=== PATIENT | female | born 1990 | race American Indian/Alaskan Native ===

== ENCOUNTER 2020-09-20 20:18 | Emergency (ER) | payer MEDICAID ==
[2020-09-20 20:52] VITALS: BP 137/62
[2020-09-20] MEDS ORDERED: TETRACAINE 0.5% OPHTH SOLN 4ML OU PRN (23:44)
[2020-09-20] MEDS ORDERED: FLUORESCEIN 1 MG STRIP OP ONE (23:44)
[2020-09-21] MEDS ORDERED: IBUPROFEN 600 MG TAB PO ONE (00:15)
[2020-09-21] MEDS ORDERED: ACETAMINOPHEN W/CODEINE 300-30 MG TAB PO ONE (00:16)
[2020-09-21] MEDS ORDERED: ONDANSETRON 4 MG ODT TAB PO ONE (00:16)
--- NOTE | 2020-09-21 00:39 | Emergency Department Report ---
ED Eye Problem HPI - General Chief complaint: Eye Problems Stated complaint: RIGHT EYE PAIN/IRRITATION Source: patient Mode of arrival: Ambulatory Limitations: No Limitations - History of Present Illness Initial comments: Patient is a 29-year-old -[place] female with no past medical history who presents to the ED with complaint of acute onset persistent right eye pain a fter injury of the right eye with contact lens which she has seen removed 3 days ago. Patient states that the pain was initially mild but subsequently got worse. Patient states that in the last 12 hours she has had persistent blurry vision and photophobia in the right eye. Patient also states that the pain in the right eye is worse with blinking of the right eyelids with a foreign body sensation. Patient denies dizziness, syncope, fever, chills, vision loss, nausea and vomiting or headache. MD chief complaint: eye pain (Right eye pain), eye redness, eye injury (Right eye injury), vision change (Blurry vision on right eye), other (Foreign body sensation in the right eye) -: Sudden, days(s) (3) Onset Description: sudden Location: right eye Place: home If Injury: direct trauma (Contact lens injury) Eye Symptoms: redness, pain, foreign body sensation, blurry vision, photophobia Severity: severe Severity scale (0 -10): 7 If Pain, Quality: sharp, throbbing Consistency: constant Context: trauma (Contact lens injury), injury (Contact lens injury) Associated Symptoms: none Treatments Prior to Arrival: removed contact lens - Related Data Patient Tetanus UTD: Yes Previous Rx's Medication Instructions Recorded Last Taken Type Gentamicin 0.3% Ophth Soln 1 drops OP Q4H #5 ml 09/21/20 Unknown Rx Ibuprofen [Motrin] 600 mg PO Q8H PRN #30 tablet 09/21/20 Unknown Rx Allergies Allergy/AdvReac Type Severity Reaction Status Date / Time No Known Allergies Allergy Unverified 09/20/20 20:52 ED Review of Systems ROS: Stated complaint: RIGHT EYE PAIN/IRRITATION Other details as noted in HPI Constitutional: denies: chills, fever Eyes: eye pain (Right eye pain), vision change (Blurry vision in right eye). denies: eye discharge ENT: denies: ear pain, throat pain Respiratory: denies: cough, shortness of breath, wheezing Cardiovascular: denies: chest pain, palpitations Endocrine: no symptoms reported Gastrointestinal: denies: abdominal pain, nausea, diarrhea Genitourinary: denies: urgency, dysuria, discharge Musculoskeletal: denies: back pain, joint swelling, arthralgia Skin: denies: rash, lesions Neurological: denies: headache, weakness, paresthesias Psychiatric: denies: anxiety, depression Hematological/Lymphatic: denies: easy bleeding, easy bruising ED Past Medical Hx - Past Medical History Previous Medical History?: No - Surgical History Past Surgical History?: No - Social History Smoking Status: Never Smoker Substance Use Type: None - Medications Home Medications: Home Medications Medication Instructions Recorded Confirmed Last Taken Type Gentamicin 0.3% Ophth Soln 1 drops OP Q4H #5 ml 09/21/20 Unknown Rx Ibuprofen [Motrin] 600 mg PO Q8H PRN #30 tablet 09/21/20 Unknown Rx ED Physical Exam - General Limitations: No Limitations General appearance: alert, in no apparent distress - Head Head exam: Present: atraumatic, normocephalic, normal inspection - Eye Eye exam: Present: normal appearance, PERRL, EOMI, other (Erythematous right conjunctiva and cornea with fluorescein dye absorption on the anterior right cornea with Ledesma lamp exam) Pupils: Present: normal accommodation, other (Anterior right cornea abrasion identified with fluorescein dye through Ledesma lamp exam) - ENT ENT exam: Present: normal exam, normal orophraynx, mucous membranes moist, TM's normal bilaterally, normal external ear exam - Neck Neck exam: Present: normal inspection, full ROM - Respiratory Respiratory exam: Present: normal lung sounds bilaterally. Absent: respiratory distress, wheezes, rales, chest wall tenderness, accessory muscle use - Cardiovascular Cardiovascular Exam: Present: regular rate, normal rhythm, normal heart sounds. Absent: systolic murmur, diastolic murmur, rubs, gallop - GI/Abdominal GI/Abdominal exam: Present: soft, normal bowel sounds. Absent: tenderness, guarding, rebound, hyperactive bowel sounds, hypoactive bowel sounds, organomegaly - Extremities Exam Extremities exam: Present: normal inspection, full ROM, normal capillary refill - Back Exam Back exam: Present: normal inspection, full ROM. Absent: tenderness, CVA tenderness (R), CVA tenderness (L), muscle spasm, paraspinal tenderness - Neurological Exam Neurological exam: Present: alert, oriented X3, CN II-XII intact, normal gait, r eflexes normal - Psychiatric Psychiatric exam: Present: normal affect, normal mood - Skin Skin exam: Present: warm, dry, intact, normal color. Absent: rash ED Course Vital Signs 09/20/20 20:47 Temperature 98.9 F Pulse Rate 76 Respiratory 18 Rate Blood Pressure 137/62 O2 Sat by Pulse 98 Oximetry ED Medical Decision Making - Medical Decision Making This is a 29-year-old -[place] female with no past medical history who presents to the ED with complaint of acute onset persistent right eye pain after injury of the right eye with contact lens which she has seen removed 3 days ago . Patient states that the pain was initially mild but subsequently got worse. Patient states that in the last 12 hours she has had persistent blurry vision and photophobia in the right eye. Patient also states that the pain in the right eye is worse with blinking of the right eyelids with a foreign body sensation. In the ED, patient is alert and oriented x3 and is not in distress. Patient appears to be in significant pain. Ledesma lamp exam revealed anterior right cornea abrasion with fluorescein dye. Patient was treated for pain in the ED and was discharged home on pain medication and antibiotic eyedrops. Patient was given a referral to the rf technician Dr. Rowland for follow-up. Patient is advised return to the ED immediately if symptoms get worse. - Differential Diagnosis Eye injury; corneal abrasion; conjunctival abrasion; Critical care attestation.: If time is entered above; I have spent that time in minutes in the direct care of this critically ill patient, excluding procedure time. ED Disposition Clinical Impression: Corneal injury of right eye due to contact lens Injury of right conjunctiva and corneal abrasion Qualifiers: Encounter type: initial encounter Qualified Code(s): S05.01XA - Injury of conjunctiva and corneal abrasion without foreign body, right eye, initial encounter Right eye injury Qualifiers: Encounter type: initial encounter Qualified Code(s): S05.91XA - Unspecified injury of right eye and orbit, initial encounter Disposition: TO HOME OR SELFCARE Is pt being admited?: No Does the pt Need Aspirin: No Condition: Stable Instructions: Corneal Abrasion, [id number] Additional Instructions: Take medication with food, drink plenty of fluids and follow-up with your rf technician Dr. Rowland in 24 to 48 hours for reevaluation. Contact Dr. Rowland's office first thing in the morning today September 20, 2020 to schedule a follow-up appointment. Return to the ED immediately if symptoms get worse. Prescriptions: Gentamicin 0.3% Ophth Soln 1 drops OP Q4H #5 ml Ibuprofen [Motrin] 600 mg PO Q8H PRN #30 tablet PRN Reason: Pain Referrals: DAVIS ULLOA MD [Staff Physician] - 3-5 Days Forms: Work/School Release Form(ED) Time of Disposition: 00:44 Print Language: NIGERIAN
== END 2020-09-21 01:00 | disposition home or self-care (01) ==
LOC: ED 20:18
DX: S05.91XA Unspecified injury of right eye and orbit, initial encounter (principal); S05.01XA Injury of conjunctiva and corneal abrasion without foreign body, right eye, initial encounter; S05.8X1A Other injuries of right eye and orbit, initial encounter; Z79.899 Other long term (current) drug therapy; X58.XXXA Exposure to other specified factors, initial encounter; Y93.89 Activity, other specified; Y92.099 Unspecified place in other non-institutional residence as the place of occurrence of the external cause; Y99.8 Other external cause status
CPT/HCPCS: Q0162